=== PATIENT | female | born 1965 ===

== ENCOUNTER 2017-05-25 22:03 | Inpatient (IN) | payer MEDICARE, MEDICAID ==
[2017-05-25 22:35] LABS: Hematocrit 34.5 % (36.0-47.0); Mean Platelet Volume 7.4 fL (7.4-10.4); Red Blood Cell (RBC) Count 4.61 mill/uL (4.20-5.40); White Blood Cell (WBC) Count 7.6 thou/uL (4.8-10.8)
--- NOTE | 2017-05-25 22:44 | RAD ---
PORTABLE UPRIGHT FRONTAL CHEST RADIOGRAPH 05/25/17 COMPARISON: None. HISTORY: COPD, wheezing and shortness of breath. FINDINGS: Increased linear interstitial density noted. No pneumothorax or pleural fluid is seen. There is ather osclerotic calcification of the aortic arch. Lungs are mildly hyperinflated. No focal consolidation o r alveolar edema. IMPRESSION: Findings consistent with the provided history of COPD. No focal consolidation or alveolar edema. POS: [facility]
[2017-05-25] MEDS ORDERED: Ondansetron HCl/PF 4 MG/2 ML Vial ONE (22:45)
[2017-05-25] MEDS ORDERED: Azithromycin 500 MG VIAL ONE (22:45)
[2017-05-25] MEDS ORDERED: methylPREDNISolone Sod Succ/PF 125 MG/2 ML VIAL ONE (22:45)
[2017-05-25 22:55] LABS: #Eosinphils 0.1 thou/uL (0.0-0.7); #Lymphocytes 1.5 thou/uL (1.20-3.40); #Monocytes 0.6 thou/uL (0.11-0.59); #Neutrophils 5.4 thou/uL (1.40-6.50); %Basophils 0.2 % (0.0-1.0); %Eosinophils 1.6 % (0.0-10.0); %Lymphocytes 19.4 % (21.0-51.0); %Monocytes 7.5 % (0.0-10.0); ALT (SGPT) 7 U/L (8-55); AST (SGOT) 10 U/L (5-34); Alkaline Phosphatase 94 U/L (40-150); Anion Gap 11 mmol/L (10-20); Anisocytosis SLIGHT = 6-15 cells (100X) (0-5/hpf); BUN (Urea Nitrogen) 14 mg/dL (9.8-20.1); Bilirubin, Total Less than 0.2 mg/dL (0.2-1.2); Calc. Creatinine Clearance 0 mL/min (70-130); Calcium 9.2 mg/dL (7.8-10.44); Carbon Dioxide 27 mmol/L (22-29); Chloride 105 mmol/L (98-107); Elliptocytes SLIGHT = 2-5 cells (100X) (0-1/hpf); Estimated GFR-MDRD 58; Globulin 2.9 g/dL (2.4-3.5); Hypochromia SLIGHT = 6-15 cells (100X) (0-5/hpf); Microcytosis SLIGHT = 6-15 cells (100X) (0-5/hpf); Protein, Total 6.6 g/dL (6.0-8.3)
[2017-05-25 23:05] LABS: Troponin I Less than 0.010 ng/mL (< 0.028)
[2017-05-26] MEDS ORDERED: Albuterol Sulfate 2.5 mg/3 ml Neb ONE ×2 (01:26)
[2017-05-26 02:57] LABS: Bilirubin Negative (Negative); Blood, Urine Negative (Negative); Glucose, Urine (Dipstick) Negative (Negative); Ketone, Urine Negative (Negative); Nitrite Negative (Negative); Protein, Urine (Dipstick) Negative (Neg-Trace); Urobilinogen 0.2 mg/dL (0.2-1.0)
[2017-05-26] MEDS ORDERED: Ondansetron ODT 4 MG TAB SL PRN (03:43)
[2017-05-26] MEDS ORDERED: Ondansetron HCl/PF 4 MG/2 ML Vial IVP PRN (03:43)
[2017-05-26] MEDS ORDERED: Sodium Chloride 0.45% 1,000 ML IV SCH (03:45)
[2017-05-26 03:56] VITALS: BMI 41.3
[2017-05-26] MEDS ORDERED: HYDROcodone/Acetaminophen 5/325 mg Tablet PO SCH (06:15)
[2017-05-26] MEDS ORDERED: Ondansetron ODT 4 MG TAB PO PRN (08:31)
[2017-05-26] MEDS ORDERED: cloNIDine 0.1 MG TAB PO PRN (08:31)
[2017-05-26] MEDS ORDERED: Acetaminophen 500 MG TAB PO PRN (08:31)
[2017-05-26] MEDS ORDERED: hydrALAZINE 20 MG/ML VIAL SLOW IVP PRN (08:31)
[2017-05-26] MEDS ORDERED: Benzonatate 100 MG CAP PO PRN (08:31)
[2017-05-26] MEDS ORDERED: Non-Formulary Item 1 EACH (Roflumilast [Daliresp] 500 MCG) PO SCH (09:00)
[2017-05-26] MEDS ORDERED: HYDROcodone/Acetaminophen 10/325 mg Tablet PO SCH (09:00)
--- NOTE | 2017-05-26 09:19 | HP ---
DATE OF ADMISSION: 05/26/2017 PRIMARY CARE PROVIDER: Dr. Andrew Vogt out of [place], [place]. CHIEF COMPLAINT: Shortness of breath and cough. HISTORY OF PRESENT ILLNESS: This is a 51-year-old female who presents to [facility] complaining of increased cough, shortness of breath, and wheezing in the context of known asthma. The patient states that she has been admitted to the hospital approximately every 3 mo nths prior to moving to the [facility]. The patient states she was formerly cared fo r in the [facility], managed by her primary care provider. The patient states within the las t 4 weeks, she was placed on antibiotics as well as a steroid taper due to wheezing and asthma exacer bation. The patient states she is current on her influenza and pneumonia vaccinations and denies any exposure history. The patient states she has recently moved to the [facility] to re locate and has not established with a primary care provider. The patient does admit to using a home nebulizer with DuoNeb solution as well as intermittent use of oxygen supplementation. The patient de nied any recent travel history. New medication regimens, all family members with similar symptoms. The patient denies any specific or prominent fever, chills, nausea, vomiting or diarrhea. Patient st ates symptoms are worse when lying flat or ambulating. In the emergency room, patient underwent gene ral evaluation including chest imaging showing no acute infiltrates. Patient received bronchodilator therapy with albuterol sulfate and DuoNeb solution, Solu-Medrol, Zofran, Zithromax and Rocephin. Th e patient was transferred to the telemetry unit for further evaluation. PAST MEDICAL HISTORY: 1. Chronic asthma. 2. Question of chronic obstructive pulmonary disease. 3. History of deep venous thrombosis in 1980s. 4. Chronic hypoxic respiratory failure. 5. Question of seasonal allergies. PAST SURGICAL HISTORY: 1. Status post appendectomy. 2. Status post section. 3. Status post hernia repair. 4. Status post hysterectomy. 5. Status post bilateral tubal ligation. CURRENT MEDICATIONS: 1. Combivent metered dose inhaler 2 puffs inhaled q.i.d. 2. Bystolic 5 mg 1 tablet p.o. daily. 3. Protonix 40 mg 1 tab p.o. daily. 4. Daliresp 500 mcg p.o. daily. 5. Sucralfate 1 gram p.o. daily. 6. Trazodone 100 mg p.o. at bedtime. 7. Triamterene/hydrochlorothiazide 37.5/25 mg 1 tab p.o. daily. 8. [place] 10/325 mg 1 tab p.o. t.i.d. p.r.n. pain. ALLERGIES: PENICILLIN. FAMILY HISTORY: No inheritable diseases per patient report. SOCIAL HISTORY: The patient resides in the [facility]. Disabled. No current alcoho l, tobacco or illicit drug use. REVIEW OF SYSTEMS: The following complete review of systems was negative, unless otherwise mentioned in the HPI or below: Constitutional: Weight loss or gain, ability to conduct usual activities. Skin: Rash, itching. Eyes: Double vision, pain. ENT/Mouth: Nose bleeding, neck stiffness, pain, tenderness. Cardiovascular: Palpitations, dyspnea on exertion, orthopnea. Respiratory: Shortness of breath, wheezing, cough, hemoptysis, fever or night sweats. Gastrointestinal: Poor appetite, abdominal pain, heartburn, nausea, vomiting, constipation, or diarr hea. Genitourinary: Urgency, frequency, dysuria, nocturia. Musculoskeletal: Pain, swelling. Neurologic/Psychiatric: Anxiety, depression. Allergy/Immunologic: Skin rash, bleeding tendency. Otherwise negative except as stated per HPI. PHYSICAL EXAMINATION: VITAL SIGNS: On admission, blood pressure 117/62, pulse 68, respiratory rate 22, temperature 97.8 d egrees Fahrenheit, O2 saturation 94% on 2 liters per minute by nasal cannula. GENERAL APPEARANCE: This is a 51-year-old female, alert and oriented x3, pleasant, convers ant, in no acute distress. HEENT: Pupils are equal, round, and reactive to light and accommodation. Extraocular muscles are in tact. No scleral icterus, no conjunctival injection. Nares patent. OP is clear. Teeth in fair rep air. NECK: Supple, no cervical adenopathy, no thyromegaly, no carotid bruits, no JVD appreciated. Cervic al spine with full active and passive range of motion. LUNGS: Expiratory wheezes bilaterally. Diminished breath sounds in the bases. CARDIOVASCULAR: S1 and S2 without noted murmur. ABDOMEN: Obese, soft, nontender, nondistended. Bowel sounds are positive in all four quadrants. Th ere is no hepatosplenomegaly, no abdominal bruits, no rebound or guarding appreciated. EXTREMITIES: Warm and dry with fair turgor. No clubbing, cyanosis or asymmetric edema appreciated. Pulses palpable distally at the dorsalis pedis, posterior tibial, and popliteal arteries bilaterally . Capillary refill is less than 2 seconds. NEUROLOGIC: Cranial nerves II-XII are grossly intact. No focal or lateralizing signs appreciated. PERTINENT LABORATORY DATA AND X-RAY FINDINGS: Basic metabolic profile within normal limits. Calcium 9.2, AST 10, ALT of 7, alkaline phosphatase 94. Troponin I negative x1, BNP 101, albumin 3.7. CBC showed a white blood cell count of 7.6, hemoglobin 10, hematocrit 35, MCV 75, platelet count 412 with 71% neutrophils. Urinalysis shows specific gravity greater than 1.060. Influenza A and B antigen n egative, 05/26/2017. Portable chest x-ray dated 05/25/2017 showed no acute cardiopulmonary process. Hyperinflation and chronic changes in bilateral lung willett consistent with COPD. CT angiogram of t he chest dated 05/26/2017 showed no evidence for pulmonary embolus. EKG dated 05/25/2017 by my inter pretation shows sinus mechanism with heart rate in the 80s. Normal R-wave progression noted in the p recordial leads. Normal axis. No acute ST-T wave changes appreciated. ASSESSMENT AND PLAN: 1. Acute on chronic hypoxemic respiratory failure. Suspect secondarily to asthma exacerbation. Con tinue Solu-Medrol 40 mg IV every 6 hours, DuoNeb q.4 hours, Levaquin 750 mg p.o. daily. Continue oxy gen supplementation to maintain O2 saturation greater than or equal to 90%. No evidence to suggest c urrent pneumonia. 2. Asthma exacerbation. See #1 above. Trial of Spiriva 18 mcg inhaled daily. 3. Hypertension. Resume home antihypertensive regimen and monitor clinical response. 4. Chronic microcytic anemia. Stable currently. Repeat CBC in the a.m. No evidence to suggest acu te blood loss. 5. Gastroesophageal reflux disease. Continue Protonix 40 mg p.o. daily. 6. Prophylaxis. Sequential compression devices while in bed. Protonix 40 mg p.o. daily. 7. Code status is FULL. Surrogate medical decision maker is Apollo Morales.
[2017-05-26] MEDS: Nebivolol HCl 5 MG TAB PO SCH (09:27)
[2017-05-26] MEDS: Triamterene/Hydrochlorothiazide 37.5 mg/25 mg Tablet PO SCH (09:27)
[2017-05-26] MEDS: Ondansetron HCl/PF 4 MG/2 ML Vial IVP PRN (09:27)
[2017-05-26] MEDS: HYDROcodone/Acetaminophen 10/325 mg Tablet PO SCH ×3 (09:28→20:01)
[2017-05-26] MEDS: Famotidine 20 MG TAB PO SCH ×2 (09:28→20:02)
[2017-05-26] MEDS: Sucralfate 1 GM TAB PO SCH (09:28)
--- NOTE | 2017-05-26 10:45 | CT ---
PRELIMINARY REPORT/[facility]/EMERGENCY AFTER HOURS PROCEDURE: EXAM: CT Angiography Chest With Intravenous Contrast CLINICAL HISTORY: 51 years old, female; Pain; Chest pain; Type not specified; Patient HX: R/O pe TECHNIQUE: Axial computed tomographic angiography images of the chest with intravenous contrast using pulmonary embolism protocol. Coronal and sagittal reformatted images were created and reviewed. CONTRAST: 70 mL of ISOVUE administered intravenously. COMPARISON: No relevant prior studies available. FINDINGS: Pulmonary arteries: No visible acute pulmonary embolism. Aorta: There are atherosclerotic aortic calcifications. No thoracic aortic aneurysm. Lungs: There is mild to moderate centrilobular and paraseptal emphysema. There is minimal bibasilar a telectatic change or scarring. No mass. Pleural space: Unremarkable. No significant effusion. No pneumothorax. Heart: Unremarkable. No cardiomegaly. No significant pericardial effusion. No evidence of RV dysfunct ion. Mediastinum: There is a small hiatal hernia. Bones/joints: No acute fracture. No dislocation. Soft tissues: Unremarkable. Lymph nodes: Unremarkable. No enlarged lymph nodes. Kidneys and ureters: There is a simple cyst in the left kidney measuring 2.1 cm. IMPRESSION: 1. There is mild to moderate centrilobular and paraseptal emphysema. 2. No visible acute pulmonary embolism. 3. There is a small hiatal hernia. Thank you for allowing us to participate in the care of your patient. Dictated and Authenticated by: Gigi Marcano MD 05/26/2017 1:11 AM Central Time ([place] & [place]) FINAL REPORT CT ANGIOGRAM OF THE CHEST: Date: 05/26/17 HISTORY: Chest pain. COPD. Cough. Wheezing. COMPARISON: None. TECHNIQUE: CT angiogram of the chest is performed in the axial plane. Bilateral oblique and coronal three-dimens ional reformatted images are submitted for interpretation. FINDINGS: This report is in agreement with the preliminary report by [facility]. No evidence of pulmonary artery embo lism to the level of the segmental arteries. Emphysematous changes as described in the preliminary re port by [facility]. There is a hypodense lesion in the left kidney with an attenuation coefficient of 13 Ho unsfield units suggesting a left renal cyst, incompletely evaluated. Nonemergent renal ultrasound can be performed. POS: [facility]
[2017-05-26] MEDS ORDERED: ISOVUE-370 76%-LOCM 1 ML ONE (11:42)
[2017-05-26] MEDS ORDERED: Ipratropium Bromide 2.5 ml Neb NEB SCH (13:00)
[2017-05-26] MEDS ORDERED: Ondansetron HCl/PF 4 MG/2 ML Vial SLOW IVP SCH (19:30)
[2017-05-26] MEDS: traZODone HCl 50 MG TAB PO SCH (20:03)
[2017-05-26] MEDS ORDERED: Non-Formulary Item 1 EACH (Trazodone [Trazodone] 100 MG) PO SCH (21:00)
[2017-05-27] MEDS: Ondansetron HCl/PF 4 MG/2 ML Vial IVP PRN ×2 (02:53→08:44)
[2017-05-27 05:33] LABS: Anion Gap 13 mmol/L (10-20); BUN (Urea Nitrogen) 15 mg/dL (9.8-20.1); Calc. Creatinine Clearance 94 mL/min (70-130); Calcium 9.6 mg/dL (7.8-10.44); Carbon Dioxide 22 mmol/L (22-29); Chloride 104 mmol/L (98-107); Estimated GFR-MDRD 56
[2017-05-27 06:54] LABS: Elliptocytes SLIGHT = 2-5 cells (100X) (0-1/hpf); Mean Platelet Volume 7.8 fL (7.4-10.4); Neutrophil 94 % (42-75); White Blood Cell (WBC) Count 7.5 thou/uL (4.8-10.8)
[2017-05-27] MEDS ORDERED: Spiriva 18 MCG CAP (Box of 5 Caps) INH SCH (07:00)
[2017-05-27] MEDS: HYDROcodone/Acetaminophen 10/325 mg Tablet PO SCH ×3 (08:44→20:44)
[2017-05-27] MEDS: Famotidine 20 MG TAB PO SCH ×2 (08:44→20:44)
[2017-05-27] MEDS: Triamterene/Hydrochlorothiazide 37.5 mg/25 mg Tablet PO SCH (08:44)
[2017-05-27] MEDS: Sucralfate 1 GM TAB PO SCH (08:44)
[2017-05-27] MEDS: Nebivolol HCl 5 MG TAB PO SCH (08:44)
--- NOTE | 2017-05-27 11:48 | PDOC.PN ---
- Subjective Encounter Start Date: 05/27/17 Encounter Start Time: 11:40 Subjective: f/u for acute hypoxic resp failure due to asthma exacerbation. Overall -: improved. c/o nausea suspected due to Solumedrol and Levaquin. - Objective Resuscitation Status: Resuscitation Status FULL:Full Resuscitation MAR Reviewed: Yes Vital Signs & Weight: Vital Signs (12 hours) Temp Pulse Resp BP Pulse Ox 05/27/17 10:23 71 16 97 05/27/17 08:40 97.6 F 66 16 94 L 05/27/17 07:38 100 05/27/17 07:37 67 16 100 05/27/17 04:00 98.6 F 62 18 110/55 L 96 05/27/17 03:11 66 16 99 05/27/17 00:58 63 106/51 L 95 Weight Weight 206 lb 14.4 oz I&O: 05/26/17 05/27/17 05/28/17 06:59 06:59 06:59 Intake Total 370 720 Output Total 200 1550 Balance 170 -830 Result Diagrams: 05/27/17 04:36 05/27/17 04:36 EKG Reviewed by me: Yes (Tele - SR) Phys Exam - Physical Examination Constitutional: NAD HEENT: PERRLA, oral pharynx no lesions Neck: no JVD, supple Respiratory: clear to auscultation bilateral Cardiovascular: RRR Gastrointestinal: soft, non-tender, no distention, positive bowel sounds Musculoskeletal: no edema, pulses present Neurological: normal sensation, moves all 4 limbs Psychiatric: A&O x 3 Skin: normal turgor, cap refill <2 seconds Dx/Plan (1) Acute respiratory failure with hypoxia Code(s): J96.01 - ACUTE RESPIRATORY FAILURE WITH HYPOXIA Status: Acute Comment: Improved with Solumedrol, Duonebs, O2, Levaquin, de-escalate therapy and monitor clinically (2) Asthma exacerbation Code(s): J45.901 - UNSPECIFIED ASTHMA WITH (ACUTE) EXACERBATION Status: Acute Comment: Improved, see #1 (3) Nausea Code(s): R11.0 - NAUSEA Status: Acute Comment: Likely iatrogenic, decrease Levaquin 500mg daily, d/c Solumedrol, trial Phenergan 25mg po q6h prn (4) Microcytic anemia Code(s): D50.9 - IRON DEFICIENCY ANEMIA, UNSPECIFIED Status: Acute Comment: Stable, no evidence of active blood loss (5) HTN (hypertension) Code(s): I10 - ESSENTIAL (PRIMARY) HYPERTENSION Status: Acute Qualifiers: Hypertension type: essential hypertension Qualified Code(s): I10 - Essential (primary) hypertension Comment: Stable (6) GERD (gastroesophageal reflux disease) Code(s): K21.9 - GASTRO-ESOPHAGEAL REFLUX DISEASE WITHOUT ESOPHAGITIS Status: Chronic Comment: Continue Protonix and Carafate - Plan continue antibiotics, respiratory therapy, out of bed/ambulate, DVT proph w/SCDs Stable overall -: D/C Solumedrol -: Start Prednisone 40mg daily -: Trial Phenergan 25mg po q6h prn -: OOB/ambulate * Home in am
[2017-05-27] MEDS ORDERED: predniSONE 20 MG TAB PO SCH (14:00)
[2017-05-27] MEDS: Roflumilast [Daliresp] 500 MCG PO SCH ×2 (15:06→15:07)
[2017-05-27] MEDS: traZODone HCl 50 MG TAB PO SCH (20:45)
[2017-05-28] MEDS ORDERED: predniSONE 20 MG TAB PO SCH (08:00)
[2017-05-28] MEDS: Nebivolol HCl 5 MG TAB PO SCH (08:24)
[2017-05-28] MEDS: Sucralfate 1 GM TAB PO SCH (08:24)
[2017-05-28] MEDS: Famotidine 20 MG TAB PO SCH (08:24)
[2017-05-28] MEDS: Triamterene/Hydrochlorothiazide 37.5 mg/25 mg Tablet PO SCH (08:24)
[2017-05-28] MEDS: HYDROcodone/Acetaminophen 10/325 mg Tablet PO SCH ×2 (08:25→15:36)
--- NOTE | 2017-05-28 11:53 | DIS ---
DATE OF ADMISSION: 05/26/2017 DATE OF DISCHARGE: 05/28/2017 DISCHARGE DIAGNOSES: 1. Acute respiratory failure with hypoxemia secondary to #1, improved. 2. Acute asthma exacerbation, improved. 3. Nausea, iatrogenic, improved. 4. Microcytic anemia, chronic. 5. Chronic microcytic anemia, stable. 6. Hypertension, stable. 7. Gastroesophageal reflux disease. CONSULTATIONS: None. PERTINENT LAB AND X-RAY FINDINGS: Basic metabolic profile within normal limits. LFTs within normal limits. Troponin I negative x1. BNP 101. CBC showed a hemoglobin of 10, hematocrit 34, MCV 76 and platelet count 373. Influenza A and B antigen 05/26/2017 negative. Portable chest x-ray dated 05/25, showed chronic changes in bilateral lung willett without acute infiltrate. CT angiogram of the chest dated 05/26/2017, showed no evidence for pulmonary embolus. Emphysematous changes noted. HOSPITAL COURSE: Patient was admitted to the telemetry unit after initially presenting with shortnes s of breath and cough. The patient was initially managed for asthma exacerbation with oxygen supplem entation, bronchodilator therapy and IV Solu-Medrol. The patient was also placed on empiric antibiot ic therapy including Zithromax and Rocephin. The patient did clinically improve in the first 24 hour s with general pulmonary supportive measures. The patient continued to have decreased shortness of b reath compared to the time of admission; however, did have residual wheezing and some shortness of br eath with exertion. Overall, the patient did remain clinically stable through the hospital course an d is tolerating regular oral intake, ambulatory without assistance or difficulty and remaining clinic ally stable. Telemetry monitoring showed sinus mechanism without evidence of acute arrhythmia or dys rhythmia. The patient being assessed for home oxygen with prior history of oxygen use intermittently on an outpatient basis. Overall, the patient is clinically stable and ready for discharge, 05/28/20 17. DISCHARGE MEDICATIONS: 1. Prednisone 20 mg 1 tab p.o. b.i.d. x3 days, followed by 1 tab p.o. daily x 3 days, followed by robins lf a tab p.o. daily x3 days. 2. Nystatin suspension 500 units swish and spit p.o. q.i.d. p.r.n. 3. Trazodone 100 mg 1 tab p.o. at bedtime. 4. Combivent metered dose inhaler 2 puffs inhaled q.i.d. p.r.n. 5. [place] 10/325 mg 1 tab p.o. t.i.d. p.r.n. 6. Bystolic 5 mg 1 tablet p.o. daily. 7. Protonix 40 mg 1 tab p.o. daily. 8. Daliresp 500 mcg p.o. daily. 9. Sucralfate 1 gram p.o. daily. 10. Triamterene/HCTZ 37.5/25 mg 1 tab p.o. daily. FOLLOWUP: The patient will be given information regarding followup with local [facility] as well as the [facility] on discharge. Patient to establish with a [facility] care provider of choice. The patient will follow up with Dr. Ayala with Pulmonology Service an d to call his office for appointment time and date. CONDITION ON DISCHARGE: Stable. ACTIVITY: Ad kevin. DIET: Heart healthy. CODE STATUS: FULL. DISPOSITION: Home, 05/28/2017.
[2017-05-28 15:41] VITALS: BP 122/63; TEMP 98.8
== END 2017-05-28 18:45 | disposition home or self-care (01) | DRG 189 ==
LOC: ERS 22:03 → 2NO 05-26 02:39
PROVIDERS: ADMIT Internal Medicine; ATTEND Internal Medicine
DX: J96.21 Acute and chronic respiratory failure with hypoxia (principal); J45.901 Unspecified asthma with (acute) exacerbation; I10 Essential (primary) hypertension; Z86.711 Personal history of pulmonary embolism; D64.9 Anemia, unspecified; K21.9 Gastro-esophageal reflux disease without esophagitis
CPT/HCPCS: 36415; 36416; 71010; 71275; 80048; 80053; 81003; 82553; 83880; 84484; 85007; 85025; 85027; 85379; 93005; 94640; 94760; 96365; 96375; A4216; J0456; J0696; J2405; J2920; J2930; J7506; J7611; J7620; Q0162

== ENCOUNTER 2017-10-06 18:25 | Emergency (ER) | payer MEDICARE, MEDICAID ==
[2017-10-06 19:06] LABS: #Eosinphils 0.1 thou/uL (0.0-0.7); #Lymphocytes 1.1 thou/uL (1.20-3.40); #Monocytes 0.5 thou/uL (0.11-0.59); #Neutrophils 3.3 thou/uL (1.40-6.50); %Basophils 0.2 % (0.0-1.0); %Eosinophils 1.7 % (0.0-10.0); %Monocytes 9.6 % (0.0-10.0); %Neutrophils 66.5 % (42.0-75.0); Hemoglobin 11.6 g/dL (12.0-16.0); Mean Corpuscular HGB CONC 31.9 g/dL (32.0-36.0); Mean Corpuscular Hemoglobin 25.3 pg (27.0-31.0); Mean Corpuscular Volume 79.4 fl (81.0-99.0); Mean Platelet Volume 7.2 fL (7.4-10.4); Platelet Count 350 thou/uL (130-400); RBC Distribution Width 19.2 % (11.5-14.5); Red Blood Cell (RBC) Count 4.57 mill/uL (4.20-5.40)
[2017-10-06 19:21] LABS: ALT (SGPT) 17 U/L (8-55); AST (SGOT) 13 U/L (5-34); Albumin 3.9 g/dL (3.5-5.0); Alkaline Phosphatase 90 U/L (40-150); Anion Gap 11 mmol/L (10-20); BUN (Urea Nitrogen) 17 mg/dL (9.8-20.1); Bilirubin, Total 0.2 mg/dL (0.2-1.2); Calc. Creatinine Clearance 0 mL/min (70-130); Calcium 10.1 mg/dL (7.8-10.44); Carbon Dioxide 29 mmol/L (22-29); Chloride 101 mmol/L (98-107); Estimated GFR-MDRD 55; Globulin 2.9 g/dL (2.4-3.5); Glucose 95 mg/dL (70-105); Potassium 3.3 mmol/L (3.5-5.1); Protein, Total 6.8 g/dL (6.0-8.3); Sodium 138 mmol/L (136-145)
[2017-10-06 19:22] LABS: Bilirubin Negative (Negative); Blood, Urine Negative (Negative); Clarity CLOUDY (Clear); Glucose, Urine (Dipstick) Negative (Negative); Leukocyte Negative (Negative); Nitrite Negative (Negative); Protein, Urine (Dipstick) Negative (Neg-Trace); Specific Gravity, Urine 1.013 (1.002-1.036); Urobilinogen 0.2 mg/dL (0.2-1.0); pH, Urine 6.5 (5.0-9.0)
[2017-10-06 19:23] LABS: Pregnancy Test - Urine (BHCG) Negative (Negative); Pregu Control Background? CLEAR/WHITE (CLR/WHITE); Pregu Control Bar Appear? YES (CONTROL BAR); Specific Gravity 1.013 (1.002-1.036)
[2017-10-06] MEDS ORDERED: diphenhydrAMINE 50 MG/ML VIAL ONE (20:43)
[2017-10-06] MEDS ORDERED: Haloperidol Lactate 5 MG/ML VIAL ONE (20:43)
--- NOTE | 2017-10-06 22:44 | CT ---
HEAD CT WITHOUT CONTRAST: 10/06/17 COMPARISON: None. HISTORY: Altered mental status, pain. TECHNIQUE: Serial axial CT imaging at 5 mm intervals from vertex through skull base without contrast. FINDINGS: Imaged paranasal sinuses and mastoid air cells are well aerated. No displaced calvarial fracture. No intracranial hemorrhage, midline shift, mass effect or ventricular enlargement. IMPRESSION: No acute findings. POS: [facility]
== END 2017-10-07 02:20 | disposition home or self-care (01) ==
LOC: ERS 18:25
DX: R51 Headache (principal); I10 Essential (primary) hypertension; J45.909 Unspecified asthma, uncomplicated; J44.9 Chronic obstructive pulmonary disease, unspecified; Z79.899 Other long term (current) drug therapy
CPT/HCPCS: 36415; 70450; 80053; 81003; 81025; 85025; 96361; 96374; 96375; J1200; J1630